=== PATIENT | female | born 1935 | race African-American/Black ===

== ENCOUNTER 2017-01-10 14:30 | Emergency (ER) | payer OTHER, MEDICARE ==
[~2017-01-10 14:30] MED LIST: ACET500CAP PO; AMARYL1 MG PO; AMARYL2 PO; B-12 PO; BL LECITHIN400 MG OR; CALTRA600D PO; COREG12 PO; EYE VITAMIN PO; FLAG500TAB PO; FLORASTOR250 MG PO; HYDROCHLOROT25 MG PO; KDUR10 PO; KELP PO; KLOR-CON M2020 MEQ PO; L20 PO; LEVAQUIN750 MG PO; LEVSINTAB SL; LOP50 PO; METHOC750B PO; NORV10 PO; NORV5 PO; OS500+D PO; OSTEO BI-FLX PO; OTC STOOL SOFTENER PO; PLEND5 PO; PRAVAC PO; PROTONIX PO; RAZADYNE ER16 MG PO; TEARS PURE OP; TOPXL100 PO; TUMSROLL PO; VITAMIN D1000 UNI1 PO; VITAMIN D31000 UNIT PO; [UNRECOGNIZED DRUG - MIXTURE] PO
[2017-01-10] MEDS ORDERED: AMARYL1 MG PO (15:04)
[2017-01-10] MEDS ORDERED: ZANTAC150 MG PO (15:05)
[2017-01-10] MEDS ORDERED: BENTYL10 PO (15:05)
[2017-01-10] MEDS ORDERED: HYDROCHLOROT25 MG PO (15:06)
[2017-01-10] MEDS ORDERED: NORV5 PO (15:06)
[2017-01-10] MEDS ORDERED: COREG12 PO (15:06)
[2017-01-10] MEDS ORDERED: PRILO PO (15:06)
[2017-01-10 15:40] LABS: BASOPHILS 0.2 %; BASOPHILS ABSOLUTE 0.01 10/3/uL (0.0-0.16); EOSINOPHILS 0.4 %; EOSINOPHILS ABSOLUTE 0.02 10/3/uL (0.0-0.53); ER CBC TAT 0 Hrs 03 Mins; HEMATOCRIT 40.2 % (36.0-48.0); HEMOGLOBIN 13.8 g/dL (12.0-16.0); LYMPHOCYTES 36.6 %; LYMPHOCYTES ABSOLUTE 1.66 10/3/uL (0.67-4.30); MEAN CORPUS HGB CONC 34.3 g/dL (32.0-36.0); MEAN CORPUSCULAR HEMOGLOB 31.7 pg (26.0-34.0); MEAN CORPUSCULAR VOLUME 92.2 fL (80-100); MEAN PLATELET VOLUME 10.1 fL (9.2-13.0); MONOCYTES 7.9 %; MONOCYTES ABSOLUTE 0.36 10/3/uL (0.21-1.20); NEUTROPHILS 54.9 %; NEUTROPHILS ABSOLUTE 2.49 10/3/uL (2.02-8.40); PLATELET COUNT 184 10/3/uL (150-400); RBC DISTRIBUTION WIDTH 12.4 % (12.0-16.0); RED CELL COUNT 4.36 10/6/uL (4.0-5.6); WHITE BLOOD CELLS 4.5 10/3/uL (4.5-10.5)
[2017-01-10 15:42] LABS: MANUAL DIFF NO %
[2017-01-10 15:49] LABS: INTERNATIONAL NORMAL RATI 1.1 UNITS (-); PARTIAL THROMBO TIME 32.4 SEC (22.5-37.2); PROTIME (NOT ORD) 14.2 SEC (12.0-14.5)
[2017-01-10 16:05] LABS: BUN (BLOOD UREA NITROGEN) 10 MG/DL (6-23); CALCIUM, SERUM 9.1 MG/DL (8.5-10.4); CHEST PAIN PROFILE TAT 0 Hrs 28 Mins; CHLORIDE, SERUM 104 MMOL/L (96-112); CREATININE 0.76 MG/DL (0.55-1.02); GFR AFRICAN AMERICAN 86 ML/MIN (>=60); GFR NON AFRICAN AMERICAN 75 ML/MIN (>=60); POTASSIUM, SERUM 3.3 MMOL/L (3.5-5.3); SODIUM, SERUM 143 MMOL/L (135-148); TROPONIN I <0.02 NG/ML (<0.05)
[2017-01-10 16:07] LABS: CO2 (CARBON DIOXIDE) 32 MMOL/L (24-34); GLUCOSE, SERUM 81 MG/DL (60-99)
[2017-05-30] MEDS ORDERED: AMARYL1 MG PO (21:04)
[2017-05-30] MEDS ORDERED: HCTZ25B PO (21:05)
[2017-05-30] MEDS ORDERED: PRILO PO (21:06)
[2017-05-30] MEDS ORDERED: ZANTAC 150 PO (21:07)
[2017-05-30] MEDS ORDERED: BENTYL10 PO (21:07)
[2017-05-30] MEDS ORDERED: AT25 PO (21:08)
[2017-05-30] MEDS ORDERED: MCZ125 PO (21:09)
[2017-05-30] MEDS ORDERED: NORV5 PO (21:11)
[2017-05-30] MEDS ORDERED: KDUR10 PO (21:12)
[2017-05-30] MEDS ORDERED: COREG12 PO (21:12)
[2017-05-30] MEDS ORDERED: T PO (21:13)
[2017-06-02] MEDS ORDERED: ELIQUIS 5 MG TAB5 MG PO ×2 (11:57→11:59)
[2017-06-02] MEDS ORDERED: L40 PO (12:04)
== END 2017-01-10 18:36 | disposition home or self-care (01) ==
LOC: ER 14:30
PROVIDERS: Emergency Medicine
DX: R42 Dizziness and giddiness (principal); I10 Essential (primary) hypertension; I50.9 Heart failure, unspecified; K21.9 Gastro-esophageal reflux disease without esophagitis; F41.9 Anxiety disorder, unspecified; E11.9 Type 2 diabetes mellitus without complications; Z79.899 Other long term (current) drug therapy
CPT/HCPCS: 71010; 80048; 83735; 83880; 84484; 85025; 85610; 85730; 99285; A9270-GY